=== PATIENT | male | born 1940 | race Caucasian/White ===

== ENCOUNTER 2018-11-17 13:49 | Outpatient (CLI) | payer MEDICARE, BC ==
--- NOTE | 2018-11-17 15:34 | BD ---
Exam: DEXA Bone Density 11/17/18 PROVIDED CLINICAL HISTORY: Screening. FINDINGS: Lumbar Spine: BMD (g/cm2) T-SCORE L1 0.828 -2.2 L2 1.001 -0.8 L3 0.932 -1.6 L4 0.936 -1.4 L1-L4 0.927 -1.5 Femoral Neck: 0.518 -3.0 Total Femur: 0.837 -1.3 Impression: Calculated bone mineral density in the left femoral neck meets WHO criteria for osteoporosis and plac es the patient at prominent increased risk for fracture. POS: [facility]
== END 2018-11-17 13:50 | disposition home or self-care (01) ==
LOC: BICMAMMO 13:49
PROVIDERS: ATTEND Internal Medicine Rheumatology
DX: Z13.820 Encounter for screening for osteoporosis (principal); M19.042 Primary osteoarthritis, left hand; M54.2 Cervicalgia; Z79.899 Other long term (current) drug therapy; M81.0 Age-related osteoporosis without current pathological fracture
CPT/HCPCS: 77080

== ENCOUNTER 2022-02-11 09:00 | Inpatient (IN) | payer MEDICARE, BC ==
[2022-02-13 10:10] VITALS: BMI 23.5
[2022-02-14] MEDS ORDERED: CEFAZOLIN 2 GM VIAL ONE ×3 (08:08→14:21)
[2022-02-14] MEDS ORDERED: Sodium Chloride 0.9% 0 ML ONE (08:09)
[2022-02-14 08:28] LABS: SARS-CoV-2 NAA Rapid Test Not Detected (NotDetected)
[2022-02-14] MEDS ORDERED: Sodium Chloride 0.9% 100 ML ONE ×2 (08:35→14:21)
[2022-02-14] MEDS ORDERED: fentaNYL PF 100 MCG/2 ML SYRINGE ONE ×3 (08:44→11:27)
[2022-02-14] MEDS ORDERED: SUGAMMADEX SODIUM 200 MG/2 ML VIAL ONE (10:35)
[2022-02-14] MEDS ORDERED: Tamsulosin HCl 0.4 MG CAP ONE (11:03)
[2022-02-14] MEDS ORDERED: Bupivacaine HCl 0.5%/Epinephrine 1:200,000/PF 30 ml Vial ONE (11:03)
[2022-02-14] MEDS ORDERED: Thrombin 5000 UNITS/5 ML VIAL ONE (11:03)
[2022-02-14] MEDS ORDERED: FENTANYL 50 MCG/ML 1 ML VIAL ONE (12:01)
[2022-02-14] MEDS ORDERED: HYDROcodone/Acetaminophen 10/325 mg Tablet ONE (13:49)
== END 2022-02-14 15:25 | disposition home or self-care (01) | DRG 460 ==
LOC: SURG A 02-14 05:30
PROVIDERS: ADMIT Neurological Surgery; ATTEND Neurological Surgery
PROC: 0SG0071 Fusion of Lumbar Vertebral Joint with Autologous Tissue Substitute, Posterior Approach, Posterior Column, Open Approach (ICD-10-PCS; principal; 2022-02-14)
PROC: 0SG3071 Fusion of Lumbosacral Joint with Autologous Tissue Substitute, Posterior Approach, Posterior Column, Open Approach (ICD-10-PCS; 2022-02-14)
PROC: 0SP004Z Removal of Internal Fixation Device from Lumbar Vertebral Joint, Open Approach (ICD-10-PCS; 2022-02-14)
DX: M48.062 Spinal stenosis, lumbar region with neurogenic claudication (principal); M96.0 Pseudarthrosis after fusion or arthrodesis; Z20.822 Contact with and (suspected) exposure to COVID-19; G89.4 Chronic pain syndrome; M19.90 Unspecified osteoarthritis, unspecified site; E03.9 Hypothyroidism, unspecified; Y83.1 Surgical operation with implant of artificial internal device as the cause of abnormal reaction of the patient, or of later complication, without mention of misadventure at the time of the procedure; M51.37 Other intervertebral disc degeneration, lumbosacral region; Z90.49 Acquired absence of other specified parts of digestive tract; Z79.899 Other long term (current) drug therapy; Z79.890 Hormone replacement therapy; Z79.1 Long term (current) use of non-steroidal anti-inflammatories (NSAID)
CPT/HCPCS: C1713; C1768; C1776; J3010; J3490; U0002

== ENCOUNTER 2022-05-19 12:35 | Inpatient (IN) | payer MEDICARE, BC ==
[2022-05-19 13:23] LABS: Hemoglobin 7.2 g/dL (14.0-18.0); Mean Corpuscular HGB CONC 33.4 g/dL (32.0-36.0); Mean Corpuscular Hemoglobin 31.6 pg (27.0-31.0); Mean Corpuscular Volume 94.8 fl (78.0-98.0); Mean Platelet Volume 6.4 fL (7.4-10.4); Platelet Count 644 10x3/uL (130-400); RBC Distribution Width 14.1 % (11.5-14.5); Red Blood Cell (RBC) Count 2.28 mill/uL (4.70-6.10); White Blood Cell (WBC) Count 13.8 10x3/uL (4.8-10.8)
[2022-05-19 13:36] LABS: ALT (SGPT) Less than 7 U/L (8-55); AST (SGOT) 27 U/L (5-34); Albumin 2.2 g/dL (3.4-4.8); Alkaline Phosphatase 76 U/L (40-110); Anion Gap 11 mmol/L (10-20); BUN (Urea Nitrogen) 35 mg/dL (8.4-25.7); Bilirubin, Total 0.5 mg/dL (0.2-1.2); Calc. Creatinine Clearance 0 mL/min (70-130); Calcium 8.7 mg/dL (7.8-10.44); Carbon Dioxide 31 mmol/L (23-31); Chloride 99 mmol/L (98-107); Estimated GFR 92; Globulin 3.1 g/dL (2.4-3.5); Glucose 146 mg/dL (83-110); Potassium 4.2 mmol/L (3.5-5.1); Protein, Total 5.3 g/dL (5.8-8.1); Sodium 137 mmol/L (136-145)
[2022-05-19 13:40] LABS: Bacteria/HPF 1+ HPF (None Seen); Bilirubin Negative (Negative); Blood, Urine Negative (Negative); Glucose, Urine (Dipstick) Normal (Negative); Ketone, Urine 10 mg/dL (Negative); Leukocyte Negative Leu/uL (Negative); Nitrite Negative (Negative); Protein, Urine (Dipstick) 30 mg/dL (Neg-Trace); RBC/HPF 0-3 HPF (0-3); Specific Gravity, Urine 1.028 (1.002-1.036); Squamous Epithelial 0-3 HPF (0-3); Urobilinogen Normal mg/dL (Less than 2); pH, Urine 5.5 (5.0-9.0)
[2022-05-19 13:41] LABS: Clarity Cloudy (Clear)
[2022-05-19 13:54] LABS: #Basophils 0.1 thou/uL (0.0-0.2); #Eosinphils 0.2 thou/uL (0.0-0.7); #Lymphocytes 2.5 thou/uL (1.20-3.40); #Monocytes 1.2 thou/uL (0.11-0.59); #Neutrophils 9.9 thou/uL (1.40-6.50); %Basophils 0.5 % (0.0-1.0); %Eosinophils 1.2 % (0.0-10.0); %Lymphocytes 18.1 % (21.0-51.0); %Monocytes 8.6 % (0.0-10.0); %Neutrophils 71.6 % (42.0-75.0); Band 12 % (5-11); Eosinophils 1 % (0-10); Lymphocytes 11 % (21-51); MDiff Complete? YES; Metamyelocyte 4 % (0-0); Monocytes 9 % (0-10); Myelocyte 1 % (0-0); Neutrophil 61 % (42-75); Platelet Morphology Comment Appears Increased; Polychromasia MODERATE = 3-4 cells (100X) (0-2/hpf)
[2022-05-19] MEDS ORDERED: Pantoprazole 40 MG VIAL ONE (16:36)
[2022-05-19] MEDS ORDERED: Pantoprazole 80 MG, Admixture Fee 1 EACH in Sodium Chloride 0.9% 100 ML IVPB SCH (16:45)
[2022-05-19 18:56] LABS: Troponin I 0.012 ng/mL (< 0.028)
[2022-05-19] MEDS ORDERED: Non-Formulary Item 1 EACH (Carbidopa/Levodopa [Rytary Er] 48.75 MG/195 MG Capsule.Er) PO SCH (21:00)
[2022-05-19] MEDS ORDERED: Ondansetron PF 4 MG/2 ML Vial IVP PRN (21:06)
[2022-05-19] MEDS ORDERED: Acetaminophen 325 MG TAB PO PRN (21:06)
[2022-05-19] MEDS ORDERED: Morphine 2 MG/ML VIAL SLOW IVP SCH (22:15)
[2022-05-19] MEDS: Amoxicillin/Potassium Clav 875 MG TAB PO SCH (22:23)
[2022-05-19] MEDS: Vancomycin HCl 125 MG/5 ML (BATCHED) UDCUP PO SCH ×2 (22:24→22:26)
[2022-05-19] MEDS: Gabapentin 100 MG CAP PO SCH (22:24)
[2022-05-19] MEDS: Sucralfate 1 GM/10 ML UDCUP PO SCH ×2 (22:25→22:26)
[2022-05-19] MEDS: Sodium Chloride 0.9% 1,000 ML IV SCH (22:25)
[2022-05-20 00:48] VITALS: BMI 19.7
[2022-05-20 02:10] LABS: SARS-CoV-2 NAA Rapid Test DETECTED (NotDetected)
[2022-05-20] MEDS: Levothyroxine Sodium 100 MCG TAB PO SCH (05:41)
[2022-05-20] MEDS: Vancomycin HCl 125 MG/5 ML (BATCHED) UDCUP PO SCH ×3 (05:41→20:24)
[2022-05-20 07:23] LABS: #Eosinphils 0.6 thou/uL (0.0-0.7); #Lymphocytes 1.5 thou/uL (1.20-3.40); #Monocytes 1.1 thou/uL (0.11-0.59); #Neutrophils 8.4 thou/uL (1.40-6.50); %Basophils 0.4 % (0.0-1.0); %Eosinophils 5.3 % (0.0-10.0); %Lymphocytes 12.8 % (21.0-51.0); %Neutrophils 72.5 % (42.0-75.0); Hemoglobin 7.6 g/dL (14.0-18.0); Mean Corpuscular HGB CONC 34.4 g/dL (32.0-36.0); Mean Corpuscular Hemoglobin 32.1 pg (27.0-31.0); Mean Corpuscular Volume 93.1 fl (78.0-98.0); Mean Platelet Volume 7.2 fL (7.4-10.4); Platelet Count 370 10x3/uL (130-400); RBC Distribution Width 16.2 % (11.5-14.5); Red Blood Cell (RBC) Count 2.37 mill/uL (4.70-6.10); White Blood Cell (WBC) Count 11.6 10x3/uL (4.8-10.8)
[2022-05-20 07:28] LABS: Anion Gap 9 mmol/L (10-20); BUN (Urea Nitrogen) 20 mg/dL (8.4-25.7); Calc. Creatinine Clearance 77 mL/min (70-130); Calcium 8.1 mg/dL (7.8-10.44); Carbon Dioxide 26 mmol/L (23-31); Chloride 106 mmol/L (98-107); Estimated GFR 96; Glucose 88 mg/dL (83-110); Potassium 4.4 mmol/L (3.5-5.1); Sodium 137 mmol/L (136-145)
[2022-05-20] MEDS: Sodium Chloride 0.9% 1,000 ML IV SCH ×2 (08:25→20:25)
[2022-05-20] MEDS: Sucralfate 1 GM/10 ML UDCUP PO SCH ×5 (08:25→20:25)
[2022-05-20] MEDS: Gabapentin 100 MG CAP PO SCH ×4 (08:26→20:25)
[2022-05-20] MEDS: Amoxicillin/Potassium Clav 875 MG TAB PO SCH ×4 (08:26→20:24)
[2022-05-20] MEDS: Liothyronine Sodium 5 MCG TAB PO SCH ×2 (08:27→08:31)
[2022-05-20] MEDS ORDERED: PROPOFOL 200 MG/20 ML VIAL ONE (11:43)
[2022-05-20] MEDS ORDERED: Lidocaine 1% PF 5 ML VIAL ONE (11:43)
[2022-05-20 18:13] LABS: Hemoglobin 9.4 g/dL (14.0-18.0)
[2022-05-20] MEDS: Pantoprazole 40 MG VIAL IVP SCH (20:25)
[2022-05-21] MEDS: Vancomycin HCl 125 MG/5 ML (BATCHED) UDCUP PO SCH ×4 (01:01→20:43)
[2022-05-21 04:56] LABS: Hemoglobin 7.2 g/dL (14.0-18.0); Mean Corpuscular HGB CONC 33.3 g/dL (32.0-36.0); Mean Corpuscular Hemoglobin 31.2 pg (27.0-31.0); Mean Corpuscular Volume 93.6 fl (78.0-98.0); Mean Platelet Volume 6.3 fL (7.4-10.4); Platelet Count 392 10x3/uL (130-400); RBC Distribution Width 16.4 % (11.5-14.5); Red Blood Cell (RBC) Count 2.31 mill/uL (4.70-6.10)
[2022-05-21 05:20] LABS: Anion Gap 9 mmol/L (10-20); BUN (Urea Nitrogen) 12 mg/dL (8.4-25.7); Calc. Creatinine Clearance 84 mL/min (70-130); Calcium 7.9 mg/dL (7.8-10.44); Carbon Dioxide 25 mmol/L (23-31); Chloride 108 mmol/L (98-107); Estimated GFR 99; Glucose 71 mg/dL (83-110); Magnesium 1.9 mg/dL (1.6-2.6); Sodium 139 mmol/L (136-145)
[2022-05-21 05:27] LABS: Band 10 % (5-11); Eosinophils 4 % (0-10); Lymphocytes 7 % (21-51); MDiff Complete? YES; Neutrophil 79 % (42-75); Nucleated RBC 1 % (0); Polychromasia MODERATE = 3-4 cells (100X) (0-2/hpf); White Blood Cell (WBC) Count 9.9 10x3/uL (4.8-10.8)
[2022-05-21] MEDS: Levothyroxine Sodium 100 MCG TAB PO SCH (05:33)
[2022-05-21] MEDS ORDERED: Potassium Chloride 20 MEQ in Premix Bag 1 BAG IVPB SCH (09:00)
[2022-05-21] MEDS: Pantoprazole 40 MG VIAL IVP SCH ×2 (09:12→20:44)
[2022-05-21] MEDS: Sucralfate 1 GM/10 ML UDCUP PO SCH ×5 (09:12→20:44)
[2022-05-21] MEDS: Amoxicillin/Potassium Clav 875 MG TAB PO SCH ×2 (09:13→20:43)
[2022-05-21] MEDS: Liothyronine Sodium 5 MCG TAB PO SCH (09:13)
[2022-05-21] MEDS: oxyCODONE 5 MG TAB PO PRN ×2 (09:41→16:55)
[2022-05-21] MEDS ORDERED: Potassium Chloride 20 MEQ TAB PO SCH (11:15)
[2022-05-21 11:37] LABS: Hemoglobin 7.4 g/dL (14.0-18.0)
[2022-05-21] MEDS ORDERED: Potassium Bicarbonate/Cit Ac 20 MEQ TAB PO SCH (12:00)
[2022-05-21] MEDS: Gabapentin 100 MG CAP PO SCH (19:52)
[2022-05-21] MEDS: Sodium Chloride 0.9% 1,000 ML IV SCH (19:52)
[2022-05-21] MEDS: Gabapentin 300 MG CAP PO SCH (20:43)
[2022-05-22] MEDS: Vancomycin HCl 125 MG/5 ML (BATCHED) UDCUP PO SCH ×4 (03:28→21:24)
[2022-05-22] MEDS: oxyCODONE 5 MG TAB PO PRN ×3 (03:29→21:31)
[2022-05-22 04:42] LABS: Anion Gap 13 mmol/L (10-20); BUN (Urea Nitrogen) 10 mg/dL (8.4-25.7); Calc. Creatinine Clearance 90 mL/min (70-130); Calcium 8.1 mg/dL (7.8-10.44); Carbon Dioxide 24 mmol/L (23-31); Chloride 105 mmol/L (98-107); Estimated GFR 101; Glucose 69 mg/dL (83-110); Magnesium 1.9 mg/dL (1.6-2.6); Potassium 3.2 mmol/L (3.5-5.1); Sodium 139 mmol/L (136-145)
[2022-05-22 05:24] LABS: #Eosinphils 0.6 thou/uL (0.0-0.7); #Lymphocytes 1.9 thou/uL (1.20-3.40); #Neutrophils 6.1 thou/uL (1.40-6.50); %Basophils 0.5 % (0.0-1.0); %Eosinophils 6.5 % (0.0-10.0); %Lymphocytes 19.6 % (21.0-51.0); %Monocytes 10.4 % (0.0-10.0); Hemoglobin 7.4 g/dL (14.0-18.0); Mean Corpuscular HGB CONC 33.2 g/dL (32.0-36.0); Mean Corpuscular Hemoglobin 31.5 pg (27.0-31.0); Mean Corpuscular Volume 94.8 fl (78.0-98.0); Mean Platelet Volume 6.1 fL (7.4-10.4); Platelet Count 344 10x3/uL (130-400); RBC Distribution Width 16.7 % (11.5-14.5); Red Blood Cell (RBC) Count 2.35 mill/uL (4.70-6.10); White Blood Cell (WBC) Count 9.6 10x3/uL (4.8-10.8)
[2022-05-22] MEDS: Levothyroxine Sodium 100 MCG TAB PO SCH (05:58)
[2022-05-22] MEDS: Sucralfate 1 GM/10 ML UDCUP PO SCH ×4 (08:36→21:26)
[2022-05-22] MEDS: Amoxicillin/Potassium Clav 875 MG TAB PO SCH (08:37)
[2022-05-22] MEDS: Liothyronine Sodium 5 MCG TAB PO SCH (08:37)
[2022-05-22] MEDS: Pantoprazole 40 MG VIAL IVP SCH ×2 (08:37→21:26)
[2022-05-22] MEDS ORDERED: Potassium Chloride 20 MEQ TAB PO SCH (11:00)
[2022-05-22] MEDS ORDERED: Magnesium 2 GM/50 ML(in water) 2 GM in Premix Bag 1 BAG IVPB SCH (11:00)
[2022-05-22] MEDS: D5 1/2 NS w/40 mEq KCL 1,000 ML IV SCH (11:22)
[2022-05-22] MEDS: Amoxicillin/Potassium Clav 600 mg/5 ml Oral Suspension PO SCH (21:25)
[2022-05-22] MEDS: Gabapentin 300 MG CAP PO SCH (21:25)
[2022-05-23] MEDS: D5 1/2 NS w/40 mEq KCL 1,000 ML IV SCH (01:24)
[2022-05-23] MEDS: Vancomycin HCl 125 MG/5 ML (BATCHED) UDCUP PO SCH ×3 (03:10→13:09)
[2022-05-23 05:18] LABS: #Eosinphils 0.6 thou/uL (0.0-0.7); #Lymphocytes 1.9 thou/uL (1.20-3.40); #Monocytes 1.1 thou/uL (0.11-0.59); #Neutrophils 5.3 thou/uL (1.40-6.50); %Basophils 0.4 % (0.0-1.0); %Eosinophils 6.6 % (0.0-10.0); %Monocytes 12.2 % (0.0-10.0); %Neutrophils 59.7 % (42.0-75.0); Hemoglobin 7.9 g/dL (14.0-18.0); Mean Corpuscular HGB CONC 33.5 g/dL (32.0-36.0); Mean Corpuscular Hemoglobin 32.2 pg (27.0-31.0); Mean Corpuscular Volume 96.1 fl (78.0-98.0); Mean Platelet Volume 6.2 fL (7.4-10.4); Platelet Count 378 10x3/uL (130-400); RBC Distribution Width 16.6 % (11.5-14.5); Red Blood Cell (RBC) Count 2.46 mill/uL (4.70-6.10); White Blood Cell (WBC) Count 8.8 10x3/uL (4.8-10.8)
[2022-05-23 05:58] LABS: Anion Gap 9 mmol/L (10-20); BUN (Urea Nitrogen) 7 mg/dL (8.4-25.7); Calc. Creatinine Clearance 84 mL/min (70-130); Calcium 7.8 mg/dL (7.8-10.44); Carbon Dioxide 28 mmol/L (23-31); Chloride 103 mmol/L (98-107); Estimated GFR 99; Glucose 108 mg/dL (83-110); Potassium 4.1 mmol/L (3.5-5.1); Sodium 136 mmol/L (136-145)
[2022-05-23] MEDS: Levothyroxine Sodium 100 MCG TAB PO SCH (06:51)
[2022-05-23] MEDS: oxyCODONE 5 MG TAB PO PRN (08:14)
[2022-05-23] MEDS: Sucralfate 1 GM/10 ML UDCUP PO SCH ×3 (08:16→17:10)
[2022-05-23] MEDS: Amoxicillin/Potassium Clav 600 mg/5 ml Oral Suspension PO SCH (08:20)
[2022-05-23] MEDS: Liothyronine Sodium 5 MCG TAB PO SCH (08:21)
[2022-05-23] MEDS: Pantoprazole 40 MG VIAL IVP SCH (08:21)
[2022-05-23] MEDS ORDERED: Potassium Chloride 20 MEQ TAB PO SCH (11:45)
[2022-05-23 16:09] VITALS: BP 126/64; TEMP 97
== END 2022-05-23 18:36 | DRG 377 ==
LOC: ERS 12:35 → INTOOBSV 15:51 → 2NO 15:51 → OBSVTOIN 05-20 16:29
PROVIDERS: ADMIT Internal Medicine; ATTEND Internal Medicine
PROC: 30233N1 Transfusion of Nonautologous Red Blood Cells into Peripheral Vein, Percutaneous Approach (ICD-10-PCS; 2022-05-19)
PROC: 0W3P8ZZ Control Bleeding in Gastrointestinal Tract, Via Natural or Artificial Opening Endoscopic (ICD-10-PCS; principal; 2022-05-20)
PROC: 0DB78ZX Excision of Stomach, Pylorus, Via Natural or Artificial Opening Endoscopic, Diagnostic (ICD-10-PCS; 2022-05-20)
PROC: 8E0ZXY6 Isolation (ICD-10-PCS; 2022-05-20)
DX: K26.4 Chronic or unspecified duodenal ulcer with hemorrhage (principal); E43 Unspecified severe protein-calorie malnutrition; U07.1 COVID-19; J85.2 Abscess of lung without pneumonia; A04.72 Enterocolitis due to Clostridium difficile, not specified as recurrent; Z68.1 Body mass index [BMI] 19.9 or less, adult; D62 Acute posthemorrhagic anemia; E03.9 Hypothyroidism, unspecified; K29.70 Gastritis, unspecified, without bleeding; G89.4 Chronic pain syndrome; M19.90 Unspecified osteoarthritis, unspecified site; G20 Parkinson's disease; Z87.11 Personal history of peptic ulcer disease; Z79.899 Other long term (current) drug therapy; Z79.890 Hormone replacement therapy; Z90.49 Acquired absence of other specified parts of digestive tract; Z98.1 Arthrodesis status
CPT/HCPCS: 36415; 36430; 71045; 80048; 80053; 81003; 81015; 83605; 83735; 84484; 85025; 86850; 86900; 86901; 87040; 87086; 88305; 88342; 93005; 94760; C9113; J2272; J2704; J3475; J3480; J3490; J7050; P9016; U0002

== ENCOUNTER 2022-06-04 10:56 | Outpatient (CLI) | payer MEDICARE, BC | END 2022-06-04 10:57 | disposition home or self-care (01) | LOC: RAD 10:56 | PROVIDERS: ATTEND Student in an Organized Health Care Education/Training Program | DX: I69.891 Dysphagia following other cerebrovascular disease (principal); R13.10 Dysphagia, unspecified; R63.30 Feeding difficulties, unspecified | CPT/HCPCS: 74230 ==